=== PATIENT | female | born 1940 | race Caucasian/White ===

== ENCOUNTER → 2024-09-23 | Day surgery (SDC) | payer MEDICARE ==
[2024-09-22 10:35] VITALS: BMI 23.0
[2024-09-23 07:05] VITALS: BP 155/75; PULSE 68; RESP 18; TEMP 97.3
== END ==
LOC: ORWHC2ENDO 06:17
PROVIDERS: ATTEND Internal Medicine Gastroenterology
DX: D50.9 Iron deficiency anemia, unspecified (principal)
CPT/HCPCS: 91110